=== PATIENT | male | born 1945 | race Caucasian/White ===

== ENCOUNTER → 2017-11-14 | Outpatient (CLI) | payer OTHER, MEDICARE ==
[~2017-11-14] MED LIST: ALEVE220 MG PO; ASPIR 8181 MG PO; ASPIRIN EC81 M1 PO; BENADRYL25 MG PO; CIPRO500 M1 PO; CLARITIN10 MG PO; FISH OIL 1,001000 M2 PO; FLAGYL500 M1 PO; FLECAINIDE ACET50 M1 PO; FLOMAX0.4 MG PO; HYDROCHLOROTH12.5 M1 PO; HYDROCHLOROTH12.5 MG; HYDROCHLOROTHIA25 M2 PO; IBUPROFEN 600600 M1 PO; MAGOX 400400 MG PO; NORCO 5-325 TA1 EACH PO; OLOPATADINE HC2.5 ML INTRAOCULR; POTASSIUM GLUC500 MG PO; POTASSIUM PO; TOPROL XL100 MG PO; TOPROL XL25 MG PO; ULTRAM 50MG TAB50 MG PO; VITAMIN B-12500 MCG PO; VITAMIN C1000 MG PO; VITAMIN D PO; VITAMIN D31000 UNI2 PO; VITAMINC500 PO
== END ==
LOC: M.CT 10:28
DX: K57.30 Diverticulosis of large intestine without perforation or abscess without bleeding (principal); K76.0 Fatty (change of) liver, not elsewhere classified; K40.90 Unilateral inguinal hernia, without obstruction or gangrene, not specified as recurrent; N28.1 Cyst of kidney, acquired; I10 Essential (primary) hypertension; I34.1 Nonrheumatic mitral (valve) prolapse; I48.0 Paroxysmal atrial fibrillation

== ENCOUNTER → 2017-12-28 | Outpatient (CLI) | payer OTHER, MEDICARE | LOC: M.LAB 03:55 | DX: Z01.812 Encounter for preprocedural laboratory examination (principal) ==

== ENCOUNTER 2018-04-23 21:15 | Inpatient (IN) | payer OTHER, MEDICARE ==
[~2018-04-23] VITALS: Ht 177.8 cm; Wt 123.1 kg
[~2018-04-23 21:15] MED LIST changes: -FISH OIL 1,001000 M2 PO; -MAGOX 400400 MG PO; -POTASSIUM PO; -ULTRAM 50MG TAB50 MG PO; -VITAMIN C1000 MG PO; -VITAMIN D PO
[2018-04-23 21:18] VITALS: BP 138/59
[2018-04-23] MEDS ORDERED: FLECAINIDE ACET50 M1 PO (21:28)
[2018-04-23 21:37] LABS: ABSOLUTE BASOPHILS 0.1 thou/uL (0.0-0.2); ABSOLUTE EOSINOPHILS 0.3 thou/uL (0.0-0.7); ABSOLUTE LYMPHOCYTES 2.7 thou/uL (0.8-5.3); ABSOLUTE MONOCYTES 0.6 thou/uL (0.0-1.2); ABSOLUTE NEUTROPHILS 3.4 thou/uL (1.6-8.1); BASOPHILS 1.3 %; EOSINOPHILS 4.2 %; HEMATOCRIT 46.2 % (42.0-52.0); HEMOGLOBIN 15.9 gm/dL (14.0-18.0); LYMPHOCYTES 37.6 %; MCH 34.6 pg (26.0-34.0); MCHC 34.4 g/dL (28.0-37.0); MCV 100.7 fL (80.0-100.0); MONOCYTES 8.9 %; MPV 7.4 fl. (7.2-11.1); NUCLEATED RBCS 0 /100WBC; PLATELET COUNT* 227 thou/uL (150-400); RBC 4.59 mil/uL (4.50-6.00); RDW-CV 13.5 % (10.5-14.5); WBC 7.1 thou/uL (4.0-11.0)
[2018-04-23 21:45] LABS: ANION GAP 6 mmol/L (7-16); BUN 21 mg/dL (7-18); CALCIUM 8.4 mg/dL (8.5-10.1); CHLORIDE 105 mmol/L (98-107); CO2 30 mmol/L (21-32); GLUCOSE 141 mg/dL (70-99); POTASSIUM 3.9 mmol/L (3.5-5.1); SODIUM 141 mmol/L (136-145)
[2018-04-23 21:48] LABS: INR 1.1; PROTIME 11.2 Seconds (9.20-11.50)
[2018-04-23 22:00] LABS: ALBUMIN 3.5 g/dL (3.4-5.0); ALKALINE PHOSPHATASE 138 U/L (46-116); LIPASE 202 U/L (73-393); NT-PRO BRAIN NAT PEPTIDE 349 pg/mL (<300); SGOT 60 U/L (15-37); SGPT 58 U/L (30-65); TOTAL BILIRUBIN 0.6 mg/dL (<0.1-1.0); TOTAL PROTEIN 7.2 g/dL (6.4-8.2)
[2018-04-23 22:15] LABS: TROPONIN-I LEVEL <0.06 ng/mL (<0.06)
[2018-04-23 22:21] LABS: URINE BILIRUBIN NEGATIVE (Negative); URINE BLOOD NEGATIVE (Negative); URINE CLARITY CLEAR; URINE COLOR YELLOW; URINE GLUCOSE-RANDOM NEGATIVE (Negative); URINE KETONES NEGATIVE (Negative); URINE LEUKOCYTES-REFLEX NEGATIVE (Negative); URINE NITRITE-REFLEX NEGATIVE (Negative); URINE PROTEIN NEGATIVE (Negative)
[2018-04-24] VITALS (8 sets, daily range): BP systolic 117–131; BP diastolic 48–68
[2018-04-24 05:19] LABS: HEMATOCRIT 42.2 % (42.0-52.0); HEMOGLOBIN 14.2 gm/dL (14.0-18.0); MCH 34.2 pg (26.0-34.0); MCHC 33.7 g/dL (28.0-37.0); MCV 101.6 fL (80.0-100.0); MPV 7.3 fl. (7.2-11.1); RBC 4.15 mil/uL (4.50-6.00); RDW-CV 13.3 % (10.5-14.5)
[2018-04-24 05:56] LABS: ALBUMIN 2.9 g/dL (3.4-5.0); CALCIUM 8.2 mg/dL (8.5-10.1); CREATININE 0.8 mg/dL (0.6-1.3); POTASSIUM 3.9 mmol/L (3.5-5.1); TOTAL BILIRUBIN 0.4 mg/dL (<0.1-1.0); TOTAL PROTEIN 6.1 g/dL (6.4-8.2)
--- NOTE | 2018-04-24 10:56 | EKG ---
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1945 Requested By: Deborah White Order Number: [id number] MD: Eusebio Cruz Measurements Intervals [place] Rate: 70 P: 60 SD: 182 QRS: -20 QRSD: 106 T: 26 QT: 454 QTc: 490 Interpretive Statements Sinus bradycardia Supraventricular bigeminy Probable left atrial enlargement Borderline left axis deviation Low voltage, extremity leads Electronically Signed On 04-24-2018 10:55:50 CDT by Eusebio Cruz [email or web address] <ELECTRONICALLY SIGNED> By: Eusebio Cruz MD, [facility] 04/24/18 1055 19 19 Eusebio Cruz MD, [facility] /EPI
--- NOTE | 2018-04-24 11:00 | EKG ---
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: JUAN M : 1945 Requested By: Jovon Black Order Number: [id number] Reading MD: Eusebio Cruz Measurements Intervals [place] Rate: 42 P: 59 IA: 222 QRS: -9 QRSD: 111 T: 26 QT: 487 QTc: 407 Interpretive Statements Sinus bradycardia Multiple premature supraventricular complexes Borderline prolonged [place] interval Low voltage, extremity and precordial leads Electronically Signed On 04-24-2018 10:59:49 CDT by Eusebio Cruz [email or web address] <ELECTRONICALLY SIGNED> By: Eusebio Cruz MD, [facility] 04/24/18 1059 0129 0129 Eusebio Cruz MD, [facility] /EPI
[2018-04-25] VITALS: BP 86/40
[2018-04-25 00:01] VITALS: BP 107/40
[2018-04-25 04:00] VITALS: BP 104/49
[2018-04-25 05:54] LABS: CHOLESTEROL 140 mg/dL (<200); HDL CHOLESTEROL 28 mg/dL (>40); LDL CHOLESTEROL 82 mg/dL (<100); TRIGLYCERIDE 150 mg/dL (<150); VLDL 30 mg/dL (<40)
[2018-04-25 05:56] LABS: SERUM ASSESSMENT Clear
[2018-04-25 08:00] VITALS: BP 135/64
[2018-04-25 11:37] VITALS: BP 119/56
--- NOTE | 2018-04-25 17:29 | EKG ---
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1945 Requested By: Eusebio Cruz Order Number: [id number] Mathieu MD: Eusebio Cruz Measurements Intervals [place] Rate: 50 P: 40 AL: 235 QRS: -10 QRSD: 109 T: 14 QT: 473 QTc: 432 Interpretive Statements Sinus bradycardia Prolonged [place] interval Low voltage, extremity leads Baseline wander in lead(s) III Compared to ECG 04/24/2018 01:29:00 Atrial premature complex(es) no longer present Electronically Signed On 04-25-2018 17:28:59 CDT by Eusebio Cruz [email or web address] <ELECTRONICALLY SIGNED> By: Eusebio Cruz MD, [facility] 04/25/18 1728 Eusebio Cruz MD, [facility] /EPI
--- NOTE | 2018-04-26 10:11 | CON ---
[address] [address] CONSULTATION Name: CHASIDY SALAZAR Room: [address] IN ..#: [id number] Admission: 04/23/18 Attend Phys: Jovon Black MD Discharge: 04/25/18 Date of : 41 Report #: [id number] THIS REPORT FOR: //name// CC: Jovon Jeff MD DATE OF SERVICE: 04/24/2018 PRIMARY CARE PHYSICIAN: Eusebio Jeff MD HISTORY OF PRESENT ILLNESS: The patient is a 72-year-old white male who I was asked to see in the hospital after he complained of chest pain. The patient has a history of paroxysmal atrial fibrillation. He apparently has never required cardioversion. I have followed him for a number of years. Previous nuclear stress test in 2011 showed no ischemia. He previously was placed on Rythmol, but developed a metallic taste in his mouth. He was switched to flecainide. When I last saw him in the office in December, he underwent a repeat echocardiogram that showed a normal ejection fraction. Previous screening showed minimal carotid plaque. He does not exercise on a regular basis. He takes flecainide every morning; however, he frequently forgets to take his evening dose. The patient states he did a lot of work this weekend on his house. He went to bed early last night. He awakened about 7 in the evening with his heart beating irregular. He felt some tightness on the left side of his chest. He had been on a long car ride earlier today. He came to the Emergency Room last night, was admitted. He denied the pain being related to food. He had had no recent shortness of breath, syncope or lightheadedness. PAST MEDICAL HISTORY: Significant for his appendectomy, hemicolectomy for perforated bowel, knee arthroscopy. He currently has a hernia that is scheduled to be fixed in July. He has a history of hypertension, but no history of diabetes or hyperlipidemia. MEDICATIONS: Consist of aspirin, flecainide, hydrochlorothiazide, metoprolol, Naprosyn, Flomax. ALLERGIES: He has a previous intolerance to HYDROCODONE. FAMILY HISTORY: His sister had atrial fibrillation. SOCIAL HISTORY: He is . He and his live in [place]. 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 Quit smoking years ago, rarely drinks alcohol. REVIEW OF SYSTEMS: He does snore at night. No history of stroke, asthma, peptic ulcer disease, liver disease, kidney disease, cancer or psychiatric illness, [place] [address] CONSULTATION Name: CHASIDY SALAZAR Caden Room: [address]#: [id number] Admission: 04/23/18 Attend Phys: Jovon Black MD Discharge: 04/25/18 Date of : 41 Report #: [id number] PHYSICAL EXAMINATION: GENERAL: Revealed an elderly male, lying in bed, appeared in no acute distress. VITAL SIGNS: He had a blood pressure of 120/60, pulse 60. He is afebrile. HEENT: He was anicteric. Conjunctivae pink. Mucous membranes moist. NECK: Veins nondistended. Neck was supple. CHEST: Clear to auscultation. HEART: Regular rate and rhythm. Occasional prematurity. ABDOMEN: Soft. EXTREMITIES: Had no edema. Posterior tibial pulse 3+ bilaterally. SKIN: Warm, dry. NEUROLOGIC: Nonfocal. RADIOLOGICAL DATA: His ECG on admission showed a sinus rhythm with frequent PACs, no ST or T-wave change. His workup last night, he had a portable chest x-ray that showed no acute abnormality. LABORATORY DATA: Sodium 140, creatinine 0.8. His troponin 0.06. White blood cell count 6.0, hemoglobin 14.2. IMPRESSION AND RECOMMENDATIONS: 1. Chest pain. Recommend stress testing. 2. History of atrial fibrillation. Noted to have frequent PACs. I would continue flecainide. 3. Hypertension. The patient is on a diuretic. 4. I would stop his beta-tomás because of bradycardia. <ELECTRONICALLY SIGNED> By: Eusebio Cruz MD, [facility] 04/26/18 1011 0852 0915Davihalie Cruz MD, FAC /nt
[2018-06-02] MEDS ORDERED: TOPROL XL25 MG PO (06:51)
[2018-06-02] MEDS ORDERED: VITAMIN C1000 MG PO (06:52)
[2018-06-02] MEDS ORDERED: VITAMIN D PO (07:20)
[2018-06-02] MEDS ORDERED: POTASSIUM PO (07:21)
[2018-06-02] MEDS ORDERED: FISH OIL 1,001000 M2 PO (07:21)
[2018-06-02] MEDS ORDERED: MAGOX 400400 MG PO (07:22)
[2018-06-02] MEDS ORDERED: ULTRAM 50MG TAB50 MG PO (09:59)
== END 2018-04-25 15:31 | disposition home or self-care (01) | DRG 311 ==
LOC: M.ERS 21:15 → M.TBA-ER 23:23 → M.2W 23:23
PROVIDERS: Emergency Medicine; Internal Medicine Cardiovascular Disease; ADMIT Internal Medicine
DX: I20.9 Angina pectoris, unspecified (principal); D68.69 Other thrombophilia; I10 Essential (primary) hypertension; I48.0 Paroxysmal atrial fibrillation; Z90.49 Acquired absence of other specified parts of digestive tract; Z98.42 Cataract extraction status, left eye; Z98.41 Cataract extraction status, right eye; Z79.899 Other long term (current) drug therapy; Z79.82 Long term (current) use of aspirin; Z88.8 Allergy status to other drugs, medicaments and biological substances; Z87.891 Personal history of nicotine dependence

== ENCOUNTER → 2018-06-02 | Day surgery (SDC) | payer OTHER, MEDICARE ==
[~2018-06-02] MED LIST changes: +FISH OIL 1,001000 M2 PO; +MAGOX 400400 MG PO; +POTASSIUM PO; +ULTRAM 50MG TAB50 MG PO; +VITAMIN C1000 MG PO; +VITAMIN D PO
[2018-06-02 07:34] LABS: HEMATOCRIT 46.9 % (42.0-52.0); HEMOGLOBIN 15.9 gm/dL (14.0-18.0); MCH 33.8 pg (26.0-34.0); MCHC 33.8 g/dL (28.0-37.0); MPV 6.9 fl. (7.2-11.1); RBC 4.69 mil/uL (4.50-6.00); RDW-CV 13.2 % (10.5-14.5); WBC 9.2 thou/uL (4.0-11.0)
[2018-06-02 07:37] LABS: CALCIUM 8.6 mg/dL (8.5-10.1); POTASSIUM 3.9 mmol/L (3.5-5.1)
--- NOTE | 2018-06-03 07:34 | OP ---
[address] [address] OPERATIVE REPORT Name: CHASIDY SALAZAR Room: [facility].#: [id number] Admission: 06/02/18 Attend Phys: Theodora Prince DO Discharge: Date of : 41 Report #: [id number] THIS REPORT FOR: //name// CC: Theodora Jeff DATE OF SERVICE: 06/02/2018 PREPROCEDURE DIAGNOSIS: Left inguinal hernia. POSTPROCEDURE DIAGNOSIS: Left incarcerated indirect inguinal hernia. FINDINGS: A fairly large indirect inguinal hernia sac, which contained a large amount of fat. The defect itself was only about 8 mm. SURGEON: Theodora Prince DO COSURGEON: Robert Buitrago, PGY3. PROCEDURE PERFORMED: Left inguinal hernia repair with mesh. ANESTHESIA: LMA and local. ESTIMATED BLOOD LOSS: 5 mL. DRAINS: None. SPECIMENS: Hernia sac and contents. COMPLICATIONS: None. CONDITION: Stable. DISPOSITION: PACU to home. HISTORY OF PRESENT ILLNESS: The patient is a very pleasant 72-year-old gentleman who is well known to me from previous surgery. He began having left inguinal pain several months ago and had undergone a CAT scan with positive findings of a left inguinal hernia. He was then consented for repair of this with possible mesh. Risks discussed included bleeding, infection, pain, scar formation, injury to bowel or bladder, injury to the structures potentially causing sterilization, inability to void, recurrence, mesh complications and risks of general anesthesia. The patient understood these risks and elected to proceed. DESCRIPTION OF PROCEDURE: The patient was brought [place] [address] OPERATIVE REPORT Name: CHASIDY SALAZAR Room: [facility].#: [id number] Admission: 06/02/18 Attend Phys: Theodora Prince DO Discharge: Date of : 43 Report #: [id number] was laid supine on the operating room table. SCDs were placed to bilateral lower extremities. Antibiotics were given in the perioperative period. General LMA anesthesia was induced by anesthesia without difficulty. Abdomen was prepped and draped in standard sterile fashion. Timeout was performed to verify patient and procedure. The patient was placed slightly head down and tilted to the right. We began by marking out the ASIS and pubic tubercle. Incision was marked out between these two structures. A 10 mL of 0.5% Marcaine were injected in the planned incision. A 15 blade was used to make the incision. Then, using a combination of blunt and cautery dissection, we dissected down until the external abdominal oblique fibers were identified. One vein was encountered during our dissection. It was doubly clamped and ligated using a 0 silk suture. External abdominal oblique fascia was tented up between two Kellys and was gently incised using Metzenbaums taking care to avoid any underlying structures. The inferior surface of the external abdominal oblique was then gently cleared using blunt finger dissection until we reached the pubic tubercle on either side. A window was then created on the pubic tubercle and the hernia sac and the cord structures were gently tented using a [place]. Using very gentle dissection with two DeBakeys, the cremasteric fibers were stripped towards the internal ring. A very large hernia sac was quite easily identified and was stripped away from the cord structures. The vas deferens was clearly identified and was protected during our dissection. The entirety of the hernia sac was cleared away from the cord structures until we reached the internal ring. The defect itself was rather small, probably only about 8 mm and the sac was quite large and filled with incarcerated fat. I was unable to reduce this into the abdomen. The hernia sac and the contents were then gently dissected free and were handed off as specimen. At this point, we were then able to reduce the remainder of the hernia sac into the abdomen. The floor of the inguinal canal was then closely inspected. There were no further hernias identified, although there was some slight weakness in the area of direct hernia. Any further tissues were stripped away from the area. The ProGrip mesh was brought on to the field. A small plug was formed and was easily deployed into the indirect hernia defect. An onlay mesh was then also created and was easily deployed along the floor of the inguinal canal starting at the pubic tubercle. One leg of the mesh was brought under the cord structures and then, the legs were brought to cross laterally, covering our previously placed plug mesh. This provided excellent coverage of the floor. Two stitches were then placed in the mesh, one at the pubic tubercle and one where the two legs of the mesh crossed at the indirect defect. Jose drain was removed. Cord structures were allowed to fall into their anatomical position. They lay very naturally. There was no tension or compression of the cords from our mesh. 10 mL of 0.5% Marcaine were injected on the pubic tubercle. External abdominal oblique fascia was then closed in a running fashion using a 3-0 Vicryl with excellent approximation of the fascia. Wound was then closed in a layered fashion using deep and superficial stitches of 3-0 Vicryl in inverted interrupted fashion. Skin wound was closed with running 4-0 Monocryl. A 5 mL of 0.5% Marcaine were injected one fingerbreadth in front of the ASIS in a block [facility] [address] [place] [address] OPERATIVE REPORT Name: QUINCHATACHASIDY Caden Room: [facility]#: [id number] Admission: 06/02/18 Attend Phys: Theodora Prince DO Discharge: Date of : 41 Report #: [id number] type fashion. Wound was then cleansed and covered with Mastisol, Steri-Strips, 4 x 4's, and a Tegaderm. The patient was then allowed to awaken from anesthesia, was extubated and transported to the recovery room with no further difficulties. Counts were correct x 2 at the conclusion of the case. Binder was placed in the operating room. <ELECTRONICALLY SIGNED> By: Theodora Prince DO 06/03/18 0734 1154 1704Celly Prince DO /nt
--- NOTE | 2018-06-06 12:05 | PATH ---
[address] [address] PATHOLOGY RPT PROCEDURE Name: CHASIDY SALAZAR W Room: [facility]#: [id number] Admission: 06/02/18 Date of : 41 Discharge: Report #: [id number] Path Case #: [id number] [facility] Accession Number: [id number] . 01 Material submitted: . INCARCERATED HERNIA . 01 Clinical history: . Left inguinal hernia. . 02 Diagnosis: Incarcerated hernia: - Benign fat. . (JOVANA:vjm;06/05/2018) AGA/06/05/2018 . 02 Electronically signed: . Rico Garcia MD, Pathologist NPI- [id number] . 01 Gross description: . Received in formalin labeled "Chasidy Salazar, incarcerated hernia" is a yellow-winter lobulated soft tissue mass measuring 5.4 x 4.5 x 1.7 cm. The external surface is inked black. Upon sectioning, the cut surface is yellow-winter and lobulated without hemorrhage or necrosis. Correctional Case Manager sections are submitted in cassettes A1-A3, with 2 sections in each cassette. ([facility]; 06/04/2018) SYC/SYC . 02 Pathologist provided ICD-10: K43.0 . 02 CPT . 035436 Specimen Comment: A courtesy copy of this report has been sent to Specimen Comment: [phone], . Specimen Comment: Report sent to / DR BUCKLEY Performed at: [address] [facility] [address], [place], [place] [id number] MD Asim Saba MD Phone: [phone] Performed at: [address] [facility] [address] [place], [place] [id number] MD Rico Garcia MD Phone: [phone]
== END | disposition home or self-care (01) ==
LOC: M.SUR 06:28
PROVIDERS: Surgery
DX: K40.30 Unilateral inguinal hernia, with obstruction, without gangrene, not specified as recurrent (principal); Z87.19 Personal history of other diseases of the digestive system; Z88.6 Allergy status to analgesic agent; Z79.82 Long term (current) use of aspirin; Z79.899 Other long term (current) drug therapy

== ENCOUNTER → 2018-06-12 | Outpatient (CLI) | payer OTHER, MEDICARE ==
[2018-06-12 12:25] LABS: CALCIUM 9.1 mg/dL (8.5-10.1); CREATININE 1.1 mg/dL (0.6-1.3); POTASSIUM 4.4 mmol/L (3.5-5.1)
== END ==
LOC: M.LAB 11:31
PROVIDERS: Nurse Practitioner Family
DX: I10 Essential (primary) hypertension (principal)

== ENCOUNTER → 2018-06-13 | Outpatient (CLI) | payer OTHER, MEDICARE | LOC: M.MRI 07:09 | DX: S83.242A Other tear of medial meniscus, current injury, left knee, initial encounter (principal); M25.462 Effusion, left knee; M71.22 Synovial cyst of popliteal space [Baker], left knee; X58.XXXA Exposure to other specified factors, initial encounter; Y93.89 Activity, other specified; Y92.89 Other specified places as the place of occurrence of the external cause; Y99.8 Other external cause status ==

== ENCOUNTER 2018-07-04 07:12 | Inpatient (IN) | payer OTHER, MEDICARE ==
[2018-06-15 09:57] LABS: HEMATOCRIT 47.8 % (42.0-52.0); HEMOGLOBIN 16.4 gm/dL (14.0-18.0); MCH 34.4 pg (26.0-34.0); MCHC 34.3 g/dL (28.0-37.0); MCV 100.4 fL (80.0-100.0); MPV 6.7 fl. (7.2-11.1); RBC 4.76 mil/uL (4.50-6.00); RDW-CV 12.9 % (10.5-14.5)
[2018-06-15 09:58] LABS: URINE BILIRUBIN NEGATIVE (Negative); URINE BLOOD NEGATIVE (Negative); URINE CLARITY CLEAR; URINE COLOR YELLOW; URINE GLUCOSE-RANDOM NEGATIVE (Negative); URINE KETONES NEGATIVE (Negative); URINE LEUKOCYTES-REFLEX NEGATIVE (Negative); URINE NITRITE-REFLEX NEGATIVE (Negative); URINE PROTEIN NEGATIVE (Negative); URINE SPECIFIC GRAVITY 1.025 (1.005-1.030); URINE UROBILINOGEN 0.2 E.U./dl (0.2-1.0)
[2018-06-15 10:04] LABS: INR 1.1; PROTIME 11.1 Seconds (9.20-11.50)
[2018-06-15 10:08] LABS: ALBUMIN 3.4 g/dL (3.4-5.0); CALCIUM 9.2 mg/dL (8.5-10.1); POTASSIUM 3.8 mmol/L (3.5-5.1); TOTAL BILIRUBIN 0.6 mg/dL (<0.1-1.0); TOTAL PROTEIN 7.2 g/dL (6.4-8.2)
[~2018-07-04] VITALS: Ht 177.8 cm; Wt 118.8 kg
--- NOTE | ~2018-07-04 | OP ---
[facility] [address] [place] [address] OPERATIVE REPORT Name: CHASIDY SALAZAR Room: [address] IN M.R.#: [id number] Admission: 07/04/18 Attend Phys: Devang Burns Discharge: 07/05/18 Date of : 41 Report #: [id number] THIS REPORT FOR: //name// CC: Eusebio Jamison DATE OF SERVICE: 07/04/2018 PREOPERATIVE DIAGNOSIS: Left knee osteoarthritis. POSTOPERATIVE DIAGNOSIS: Left knee osteoarthritis. PROCEDURE: Left total knee arthroplasty. SURGEON: Mckinley Rodriguez II, DO PLODDING MACHINE OPERATOR: CARMENZA King. ANESTHESIA: General endotracheal. ESTIMATED BLOOD LOSS: 50 mL. ANTIBIOTICS: Ancef preoperatively. DRAINS: Medium Hemovac. COMPLICATIONS: None. DISPOSITION: Stable to recovery room. IMPLANTS: Listed in the operative record and progress note. BRIEF HISTORY: The patient seen in the preoperative area. Preop H and P was performed. Site was marked. Questions were answered. Risks and benefits were discussed with the patient in detail about surgery. The patient wished to proceed and assumed all risks of procedure. DESCRIPTION OF PROCEDURE: The patient was taken to the operative suite, placed supine on the operating table and given appropriate anesthesia. A well-padded tourniquet applied to upper thigh inflated to 300 mmHg after gravity exsanguination. The operative knee sterilely prepped and draped. Surgery began by midline incision was carried. This was carried down to the subcutaneous tissues. A medial parapatellar arthrotomy was performed and carried down to bone. The patella was then everted and excess soft tissue removed from around the femur. The femoral cutting block was then applied, checked with a drop bella [facility] [address] [place] [id number] OPERATIVE REPORT Name: MARIECHASIDY Caden Room: [address]#: [id number] Admission: 07/04/18 Attend Phys: Devang Burns Discharge: 07/05/18 Date of : 41 Report #: [id number] for rotational alignment, pinned in appropriate position and appropriate cuts were made. A 4-in-1 cutting block was then applied, checked for rotational alignment, pinned in appropriate position and appropriate cuts were made. The tibia was then exposed, excess meniscus was removed. Retraction was placed along the lateral ligaments. The tibial cutting guide was then applied, pinned in appropriate position, checked with drop bella for rotational alignment and slope and appropriate cut was made. Tibial bone was removed. The tibial base plate was then applied, checked for rotational alignment with the drop bella in appropriate The femur was then applied. A box cut was reamed. This was trialed with appropriate spacer, which showed excellent fit and fill and excellent stability of the knee through all range of motion. The patella was then reamed in appropriate fashion and sized for appropriate size. Three peg holes were drilled. It was then trialed and showed excellent flexion and extension with excellent tracking of the patella within the groove. This trial was then removed. The tibia was punched in appropriate fashion. Bone ends were cleansed with Pulsavac irrigation and cement was mixed and applied to the final implants. These were then malleted in position and held the knee in extension and compressed to allow cement to cure. After it cured, excess was removed utilizing a [place] and osteotome. The wound was then copiously irrigated. The final spacer was then malleted in position. Tourniquet was deflated. Hemostasis was obtained with electrocautery. The pain cocktail was injected. PRP gel was sprayed throughout the internal aspects of the knee. Medium Hemovac drain was then applied. Capsule was closed with #2 FiberWire and #1 Vicryl in [id number] fashion. Skin closed with 2-0 Vicryl and running 3-0 Monocryl. Dermabond and sterile dressing was applied. Richardson wrap and PolarCare applied. The patient transferred to recovery in stable condition. Counts were correct throughout the procedure. By: 2211 0009Mckinley Rodriguez II, DO /nt
[2018-07-04 09:00] VITALS: BP 139/83
[2018-07-04 16:51] VITALS: BP 137/62
[2018-07-05] VITALS (7 sets, daily range): BP systolic 118–122; BP diastolic 62–66
[2018-07-05 04:48] LABS: HEMATOCRIT 40.3 % (42.0-52.0); HEMOGLOBIN 13.7 gm/dL (14.0-18.0)
[2018-07-05] MEDS ORDERED: XARELTO10 MG PO ×2 (11:33→13:42)
[2018-07-05] MEDS ORDERED: PERCOCET PO (13:31)
[2018-07-05] MEDS ORDERED: ASPIR-TRIN325 MG PO (13:39)
== END 2018-07-05 18:44 | disposition home health service (06) | DRG 470 ==
LOC: M.PRE 07:12 → M.ORTHSURG 08:02 → M.TBA 08:02 → M.PRE 10:22 → M.ORTHSURG 13:21 → M.PRE 13:54 → M.ORTHSURG 07-05 18:44
PROVIDERS: Orthopaedic Surgery; ADMIT Internal Medicine
PROC: 0SRD0JZ Replacement of Left Knee Joint with Synthetic Substitute, Open Approach (ICD-10-PCS; principal; 2018-07-04)
DX: M17.12 Unilateral primary osteoarthritis, left knee (principal); D68.59 Other primary thrombophilia; I10 Essential (primary) hypertension; I48.91 Unspecified atrial fibrillation; Z90.49 Acquired absence of other specified parts of digestive tract; Z98.42 Cataract extraction status, left eye; Z98.41 Cataract extraction status, right eye; Z87.891 Personal history of nicotine dependence

== ENCOUNTER → 2020-06-03 | Outpatient (CLI) | payer OTHER ==
[~2020-06-03] VITALS: Ht 177.8 cm; Wt 122.5 kg
[2020-06-03] VITALS (14 sets, daily range): BP systolic 102–127; BP diastolic 51–69
[~2020-06-03] MED LIST changes: +ASPIR-TRIN325 MG PO; +PERCOCET PO; +XARELTO10 MG PO
[2020-06-03 08:35] LABS: ABSOLUTE BASOPHILS 0.1 thou/uL (0.0-0.2); ABSOLUTE EOSINOPHILS 0.3 thou/uL (0.0-0.7); ABSOLUTE LYMPHOCYTES 1.7 thou/uL (0.8-5.3); ABSOLUTE MONOCYTES 0.3 thou/uL (0.0-1.2); EOSINOPHILS 5.3 %; HEMATOCRIT 46.3 % (42.0-52.0); LYMPHOCYTES 31.8 %; MCH 34.3 pg (26.0-34.0); MCHC 34.6 g/dL (28.0-37.0); MCV 99.2 fL (80.0-100.0); MONOCYTES 6.5 %; MPV 7.2 fl. (7.2-11.1); NUCLEATED RBCS 0 /100WBC; PLATELET COUNT* 159 thou/uL (150-400); POLYS 55.4 %; RBC 4.67 mil/uL (4.50-6.00); RDW-CV 13.7 % (10.5-14.5); WBC 5.4 thou/uL (4.0-11.0)
[2020-06-03 08:46] LABS: INR 1.2
[2020-06-03 09:13] LABS: % SATURATION 37 % (20-39); IRON 121 ug/dL (50-175)
[2020-06-03 10:29] LABS: ALBUMIN 3.3 g/dL (3.4-5.0); ALKALINE PHOSPHATASE 178 U/L (46-116); ANION GAP 9 mmol/L (7-16); BUN 17 mg/dL (7-18); CALCIUM 8.7 mg/dL (8.5-10.1); CHLORIDE 102 mmol/L (98-107); CHOLESTEROL 172 mg/dL (<200); CO2 27 mmol/L (21-32); CREATININE 0.9 mg/dL (0.6-1.3); GLUCOSE 145 mg/dL (70-99); HDL CHOLESTEROL 27 mg/dL (>40); LDL CHOLESTEROL 113 mg/dL (<100); POTASSIUM 4.1 mmol/L (3.5-5.1); SGOT 74 U/L (15-37); SGPT 80 U/L (30-65); SODIUM 138 mmol/L (136-145); TC:HDL 6.4 Ratio (Not establshd); TOTAL PROTEIN 7.8 g/dL (6.4-8.2); TRIGLYCERIDE 162 mg/dL (<150); VLDL 32 mg/dL (<40)
[2020-06-03 10:30] LABS: SERUM ASSESSMENT Clear
[2020-06-03 21:08] LABS: IgG 1448 mg/dL (603-1613); IgM 175 mg/dL (15-143)
[2020-06-04 02:06] LABS: GLYCOHEMOGLOBIN (HGB A1C) 6.5 % (4.8-5.6)
[2020-06-04 08:11] LABS: HEPATITIS B SURFACE AG Negative (Negative)
[2020-06-04 14:07] LABS: ANA INTERPRETATION Negative (Negative)
[2020-06-04 16:06] LABS: CERULOPLASMIN 23.5 mg/dL (16.0-31.0)
--- NOTE | 2020-06-06 13:08 | PATH ---
[address] [address] PATHOLOGY RPT PROCEDURE Name: CHASIDY SALAZAR Room: [facility] YONI Batres#: [id number] Admission: 06/03/20 Date of : 41 Discharge: Report #: [id number] Path Case #: [id number] LCA Accession Number: [id number] . 01 Material submitted: . PART A: liver - LIVER MASS, RIGHT LOBE. Modifiers: right lobe PART B: liver - LIVER TISSUE . 02 Diagnosis: A. Liver "mass right lobe", needle biopsy: - HEPATOCELLULAR CARCINOMA, MODERATE TO POORLY DIFFERENTIATED. . B. 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 . The results are conveyed to Dr. Barrera Mcdowell on 06/06/2020. LBQ 06/06/2020 1252 Local . 02 Comment: The case is seen in co-review with Dr. Zack Ward. (MLK/db; 06/05/2020) . 02 Electronically signed: . Danielito Sands MD, Pathologist NPI- [id number] . 01 Gross description: . A. The specimen is received in formalin, labeled "Chasidy Salazar, liver mass right" and consists of multiple delicate and winter needle cores and their fragments measuring 1.8 x 0.6 x 0.2 cm in aggregate which are entirely submitted in A1. . B. The specimen is received in formalin, labeled "Chasidy Salazar, liver tissue" and consists of 2 delicate winter needle cores measuring 2.5 cm and 2.7 cm in length and 0.1 cm each in diameter which are entirely submitted in B1. (SDY; 06/03/2020) SYU/SYU 06/03/2020 1745 Local . 02 Microscopic: . Immunohistochemical stain results (properly controlled) - Block A1 HSA - Cytoplasmic staining of tumor cells Glypican-3 - Cytoplasmic staining tumor cells CK7 - Tumor cells negative; highlights biliary ductal cells CK20 - Negative CDX2 - Negative [place]apt[place] [address] PATHOLOGY RPT PROCEDURE Name: CHASIDY SALAZAR Caden [id number] Admission: 06/03/20 Date of : 41 Discharge: Report #: [id number] Path Case #: [id number] Chromogranin - Negative P40 - Negative TTF-1 - Negative AE1/AE3 - Focal weak staining of tumor cells; highlights biliary ductal cells CK19 - Tumor cells negative; highlights biliary epithelial cells . Special stain results (properly controlled) PAS-D (B1) - Highlights ceroid laden Kupffer cells PAS (B1) - Highlights intracytoplasmic hepatocellular glycogen Iron (B1) - Negative . Reticulin (B1) - Highlights intact hepatic reticulin framework pattern, with irregularly thickened hepatic plates of cirrhosis . Trichrome (B1) - Highlights bridging bands of cirrhosis, with areas of perisinusoidal and perivenular fibrosis . Reticulin (A1) - Highlights intact hepatic reticulin framework in benign areas, notable absence of reticulin framework within areas of tumor . 02 Pathologist provided ICD-10: C22.0, K75.81, K74.60 . 02 CPT . 105411, 740909, C28814, K73954, 861542, 121227, 302948, 287953, 048448, 557214 Specimen Comment: A courtesy copy of this report has been sent to [phone] Specimen Comment: [phone] Specimen Comment: Report sent to DR MCDOWELL / DR IVAN Performed at: [address], [place] [id number] MD Zack Ward MD Phone: [phone] Performed at: 02 [facility] [address], [place], [place] [address] MD Rico Garcia MD Phone: [phone]
== END | disposition home or self-care (01) ==
LOC: M.LAB 07:30 → M.ULTRA 08:30
PROVIDERS: ATTEND Internal Medicine Gastroenterology
DX: C22.0 Liver cell carcinoma (principal); K75.81 Nonalcoholic steatohepatitis (NASH); K76.89 Other specified diseases of liver; K74.60 Unspecified cirrhosis of liver; I10 Essential (primary) hypertension; E66.9 Obesity, unspecified; Z98.890 Other specified postprocedural states; Z79.899 Other long term (current) drug therapy; Z79.82 Long term (current) use of aspirin; Z90.49 Acquired absence of other specified parts of digestive tract; Z98.41 Cataract extraction status, right eye; Z98.42 Cataract extraction status, left eye; Z87.891 Personal history of nicotine dependence; Z88.8 Allergy status to other drugs, medicaments and biological substances

== ENCOUNTER 2021-01-10 17:43 | Emergency (ER) | payer OTHER, MEDICARE ==
[~2021-01-10] VITALS: Ht 177.8 cm; Wt 103.4 kg
[2021-01-10 17:53] VITALS: BP 73/43
[2021-01-10] MEDS ORDERED: ORAZINC50 MG PO (18:20)
[2021-01-10] MEDS ORDERED: [UNRECOGNIZED DRUG - OTHER] PO (18:29)
[2021-01-10 19:00] LABS: ABSOLUTE MONOCYTES 0.5 thou/uL (0.0-1.2); ABSOLUTE NEUTROPHILS 8.6 thou/uL (1.6-8.1); BASOPHILS 0.2 %; EOSINOPHILS 0.4 %; HEMATOCRIT 41.9 % (42.0-52.0); HEMOGLOBIN 14.8 gm/dL (14.0-18.0); MCH 36.9 pg (26.0-34.0); MCHC 35.2 g/dL (28.0-37.0); MONOCYTES 4.8 %; MPV 7.7 fl. (7.2-11.1); NUCLEATED RBCS 0 /100WBC; PLATELET COUNT* 128 thou/uL (150-400); POLYS 84.6 %; RBC 3.99 mil/uL (4.50-6.00); RDW-CV 13.5 % (10.5-14.5); WBC 10.2 thou/uL (4.0-11.0)
[2021-01-10 19:06] LABS: CALCIUM 8.1 mg/dL (8.5-10.1); CREATININE 1.5 mg/dL (0.6-1.3); POTASSIUM 4.3 mmol/L (3.5-5.1)
[2021-01-10 19:17] LABS: ALBUMIN 2.9 g/dL (3.4-5.0); TOTAL BILIRUBIN 1.2 mg/dL (<0.1-1.0); TOTAL PROTEIN 6.5 g/dL (6.4-8.2)
[2021-01-10 23:35] VITALS: BP 95/38
--- NOTE | 2021-01-11 14:18 | EKG ---
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: CHRISTIANO : 1945 Requested By: Romario Colmenares Order Number: [id number] MD: Luke Delatorre Measurements Intervals [place] Rate: 54 P: 14 [place]: 224 QRS: -30 QRSD: 117 T: 3 QT: 503 QTc: 477 Interpretive Statements Sinus bradycardia Prolonged [place] interval Low voltage, extremity leads Compared to ECG 04/25/2018 08:24:54 No significant changes noted Electronically Signed On 01-11-2021 14:18:35 CDT by Luke Delatorre [email or web address] <ELECTRONICALLY SIGNED> By: Luke Delatorre MD, [facility] 01/11/21 1418 1808 1808 Luke Delatorre MD, [facility] /EPI
== END 2021-01-10 23:35 | disposition admitted as inpatient to this hospital (09) ==
LOC: M.ERS 17:43 → M.TBA-ER 20:09 → M.ERS 20:09 → M.ICU 21:26 → M.TBA-ER 21:26
PROVIDERS: Emergency Medicine Emergency Medical Services
DX: I95.9 Hypotension, unspecified (principal); Z20.822 Contact with and (suspected) exposure to COVID-19; C22.9 Malignant neoplasm of liver, not specified as primary or secondary; I10 Essential (primary) hypertension; Z90.49 Acquired absence of other specified parts of digestive tract; Z88.5 Allergy status to narcotic agent